=== PATIENT | male | born 1985 | race Caucasian/White ===

== ENCOUNTER 2019-06-22 13:02 | Emergency (ER) | payer OTHER ==
[2019-06-22] MEDS ORDERED: Tetan/Diph/Pertus SYR(Tdap)* 0.5 ML SYR(BOOSTRIX) use SYR contains LATEX IM ONE (14:01)
--- NOTE | 2019-06-22 14:09 | ED ---
Laceration/Wound HPI - HPI Summary HPI Summary: Pt is a 34 y/o M presenting to the ED with a chief complaint of a laceration to his R pinky finger. It happened around 1200 when he was using a knife to open packages of meat. His last tetanus shot was over 7yrs ago. He reports numbness and pain to the area. No piece of the knife broke off. - History of Current Complaint Stated Complaint: RT HAND PINKY LAC PER PT Time Seen by Provider: 06/22/19 13:52 Hx Obtained From: Patient Mechanism of Injury: Sharp/Blunt Trauma Onset/Duration: Sudden Onset, Lasting Hours, Still Present Aggravating: Movement Alleviating: Compression Timing: Constant Onset Severity: Moderate Current Severity: Moderate Pain Intensity: 6 Pain Scale Used: 0-10 Numeric Associated Signs & Symptoms: Numbness, Pain - Allergy/Home Medications Allergies/Adverse Reactions: Allergies Allergy/AdvReac Type Severity Reaction Status Date / Time No Known Allergies Allergy Verified 06/22/19 13:06 PMH/Surg Hx/FS Hx/Imm Hx Previously Healthy: Yes Endocrine/Hematology History: Denies: Hx Diabetes Cardiovascular History: Denies: Hx Hypertension Infectious Disease History: No Infectious Disease History: Denies: Traveled Outside the [place] in Last 30 Days - Family History Known Family History: Negative: Diabetes - Social History Alcohol Use: None Hx Substance Use: No Substance Use Type: Reports: None Hx Tobacco Use: No Smoking Status (MU): Never Smoked Tobacco Review of Systems Positive: Myalgia Positive: Other - laceration R pinky Positive: Numbness All Other Systems Reviewed And Are Negative: Yes Physical Exam - Summary Physical Exam Summary: Constitutional: Well-developed, Well-nourished, Alert. (-) Distressed Skin: Warm, Dry. 2cm laceration on palmar aspect over the PIP joint. Full ROM in all joints. HENT: Normocephalic; Atraumatic Eyes: Conjunctiva normal Neck: Musculoskeletal ROM normal neck. (-) JVD, (-) Stridor, (-) Tracheal deviation Cardio: Rhythm regular, rate normal, Heart sounds normal; Intact distal pulses; Radial pulses are 2+ and symmetric. (-) Murmur Pulmonary/Chest wall: Effort normal. (-) Respiratory distress, (-) Wheezes, (-) Rales Abd: Soft, (-) tenderness, (-) Distension, (-) Guarding, (-) Rebound Musculoskeletal: (-) Edema Lymph: (-) Cervical adenopathy Neuro: Alert, Oriented x3. Numbness distally to laceration Psych: Mood and affect Normal Triage Information Reviewed: Yes Vital Signs On Initial Exam: Initial Vitals Temp Pulse Resp BP Pulse Ox 97 F 89 16 124/80 98 06/22/19 13:03 06/22/19 13:03 06/22/19 13:03 06/22/19 13:03 06/22/19 13:03 Vital Signs Reviewed: Yes Procedures - Sedation Patient Received Moderate/Deep Sedation with Procedure: No - Laceration/Wound Repair 1 Location: upper extremity - R little finger Description: Linear - 2.5cm Anesthesia: Local, 1.0%, Lido Betadine Prep?: No Laceration/Wound Explored: clean Closure: Single Layer Debridement: minimal Suture Type: Nylon - 5-0 Number of Sutures: 3 Layer Closure?: Yes Sterile Dressing Applied?: Yes Diagnostics - Vital Signs Vital Signs Temp Pulse Resp BP Pulse Ox 06/22/19 13:03 97 F 89 16 124/80 98 - Laboratory Lab Statement: Any lab studies that have been ordered have been reviewed, and results considered in the medical decision making process. Laceration Repair Course/Dx - Course Course Of Treatment: Patient is here with a small laceration to his finger. Patient has no evidence of tendon laceration. Patient is given tetanus. Patient had a digital block and successful repair of his laceration. - Clinical Impression Provider Diagnoses: Laceration of right little finger Discharge ED - Sign-Out/Discharge Documenting (check all that apply): Patient Departure - Discharge Plan Condition: Stable Disposition: HOME Patient Education Materials: Care For Your Stitches (ED) Referrals: [facility] [Outside] Additional Instructions: Take Ibuprofen or Tylenol for the pain. Take the pressure wrap off in 2 hours after you leave. Please use a glove as often as possible when you are at work/using your finger. Try to use your finger splint at all times. Please either return to the emergency department or go to your primary care provider in 10-14 days to have your stitches removed. Come back with any new or worsening symptoms. - Billing Disposition and Condition Condition: STABLE Disposition: Home - Attestation Statements Document Initiated by Scribe: Yes Documenting Scribe: Paulina Sheppard Provider For Whom Scribe is Documenting (Include Credential): Duong Del Cid MD. Scribe Attestation: Paulina Varma, scribed for Duong DelC id MD. on 06/22/19 at 1451. Scribe Documentation Reviewed: Yes Provider Attestation: The documentation as recorded by the scribe, Paulina Sheppard accurately reflects the service I personally performed and the decisions made by me, Duong De lCid MD. Status of Scribe Document: Viewed
[2019-06-22] MEDS ORDERED: Acetaminophen TAB* 325 MG PO ONE (14:19)
[2019-06-22] MEDS ORDERED: Ibuprofen TAB* 600 MG PO ONE (14:19)
[2019-06-22 15:05] VITALS: BP 135/95
== END 2019-06-22 15:04 | disposition home or self-care (01) ==
LOC: ED 13:02
DX: S61.216A Laceration without foreign body of right little finger without damage to nail, initial encounter (principal); Z23 Encounter for immunization; W26.0XXA Contact with knife, initial encounter; Y92.9 Unspecified place or not applicable
CPT/HCPCS: 12001; 90471; 90715; 99282; A9270-GY